=== PATIENT | female | born 1955 ===

== ENCOUNTER 2020-11-23 16:28 | Inpatient (IN) | payer MEDICARE ==
[~2020-11-23] VITALS: Ht 157.5 cm; Wt 68.0 kg
[2020-11-23] MEDS ORDERED: CLON0.1T PO (16:42)
--- NOTE | 2020-11-23 16:50 | NUR ---
Dr Davis at the bedside for MSE.
[2020-11-23] MEDS ORDERED: ACETAMINOPHEN ES 500 MG TABLET PO ONE (17:00)
[2020-11-23] MEDS ORDERED: CLONIDINE HCL 0.1 MG TABLET PO ONE (17:00)
[2020-11-23] MEDS ORDERED: CLONIDINE HCL 0.1 MG TABLET ONE (17:06)
--- NOTE | 2020-11-23 17:24 | NUR ---
DR Blas spoke to admitting Jayy Yao, for medical follow up in [facility]. Dr blas medically cleared the pt.
[2020-11-23 17:48] LABS: THYROID STIMULATING HORMONE 2.792 mIU/mL (0.358-3.740)
[2020-11-23] MEDS ORDERED: ACETAMINOPHEN ES 500 MG TABLET ONE (17:52)
--- NOTE | 2020-11-23 17:59 | NUR ---
Dinner tray provided, pt ate w/ good appetite. Continue monitoring for BP.
--- NOTE | 2020-11-23 19:30 | NUR ---
GPS ADMISSION NOTE: Patient is a 65 year old female, brought in by ambulance, from [facility] on a 5150 for DTS. Per the hold, the family called the police because the patient stated that she " Took a lot " of Advil and did not want to live anymore. Upon face to face evaluation, the patient is alert and oriented x4. Calm and cooperative but teary eyed. Patient admitted to taking the pills because she was fighting with her daughter over money. The patient denied actually wanting to , because she is close with her sister and granddaughter. This copywriter oriented the patient to the environment, gave patient a Rights Handbook and the Advisement. V.S are stable and the plan of care was discussed. Patient was able to contract for safety with the copywriter. Frequent rounding being done and patient monitored SI and for safety . A PRN medication was given per the patients request for sleep.This copywriter tried to call and notify the patients son about her admission, but the number that was provided is out of service. Orders received from the [facility] KNITTING TESTER Sophy and the Psychiatrist, Dr. Alvarado. No emotional distress noted at this time.
[2020-11-23 20:00] VITALS: BP 136/69
[2020-11-23] MEDS ORDERED: LORAZEPAM 1 MG TABLET PO PRN (21:00)
[2020-11-23] MEDS ORDERED: TEMAZEPAM 7.5 MG CAPSULE PO PRN (21:00)
[2020-11-23] MEDS ORDERED: MAGNESIUM HYDROXIDE 30 ML LIQUID UDC PO PRN (21:00)
[2020-11-23] MEDS ORDERED: MAG HYDROX/AL HYDROX/SIMETH 30 ML LIQUID UDC PO PRN (21:00)
[2020-11-23] MEDS: BLOOD SUGAR DIAGNOSTIC 1 EACH STRIP VI SCH (21:00)
--- NOTE | 2020-11-24 05:49 | NUR ---
Patient slept 8.30 hours last night. Up early this am for a shower. The patient denies SI at this time. Safety stratiges remain in place.
[2020-11-24] MEDS: BLOOD SUGAR DIAGNOSTIC 1 EACH STRIP VI SCH (06:13)
[2020-11-24 07:06] LABS: BASOPHILS % (AUTO) 0.7 % (0.0-2.0); EOSINOPHILS # (AUTO) 0.2 K/uL (0.0-0.7); EOSINOPHILS % (AUTO) 3.8 % (0.0-7.0); HEMATOCRIT 33.2 % (31.2-41.9); HEMOGLOBIN 11.6 g/dL (10.9-14.3); LYMPHOCYTES # (AUTO) 1.1 K/uL (20.0-40.0); LYMPHOCYTES % (AUTO) 25.4 % (20.5-51.5); MEAN CORPUSCULAR HEMOGLOBIN 30.4 uug (24.7-32.8); MEAN CORPUSCULAR HGB CONC 35 g/dL (32.3-35.6); MEAN CORPUSCULAR VOLUME 86.6 fL (75.5-95.3); MONOCYTES # (AUTO) 0.2 K/uL (2.0-10.0); NEUTROPHILS # (AUTO) 2.9 K/uL (1.8-8.9); NEUTROPHILS % (AUTO) 65.1 % (38.5-71.5); PLATELET COUNT (AUTO) 194 K/uL (179-408); RED BLOOD CELL COUNT(AUTO) 3.83 MIL/uL (3.63-4.92); WHITE BLOOD COUNT (AUTO) 4.5 K/uL (3.8-11.8)
[2020-11-24 07:19] LABS: BILIRUBIN,TOTAL 0.4 mg/dL (0.2-1.0); CREATININE 1.3 mg/dL (0.6-1.3); POTASSIUM 3.7 mmol/L (3.5-5.1)
[2020-11-24 07:30] VITALS: BP 198/83
[2020-11-24] MEDS: CLONIDINE HCL 0.1 MG TABLET PO PRN ×2 (08:44→19:00)
[2020-11-24] MEDS ORDERED: CLONIDINE HCL 0.1 MG TABLET PO SCH (09:00)
--- NOTE | 2020-11-24 10:17 | NUR ---
TAIWO Initial Discharge Plan: Patient resides at home [address] [place] [address] ([phone]) with her daughter Riana (# unknown). Patient would like to go live with her niece Constance ([phone]) upon discharge. Patient's son, Ramiro ([phone]) is also involved in the patient's care. TAIWO will continue to work with the patient, family, and MD to ensure a safe and proper discharge plan.
--- NOTE | 2020-11-24 10:25 | NUR ---
SW Family Contact: SW called and left a voicemail to discuss treatment and discharge plan with patient's son, Ramiro ([phone]).
--- NOTE | 2020-11-24 10:26 | NUR ---
Firearms Report: Rural Route Carrier completed and submitted a [employer] firearms report for 5150 danger to self certifications. A copy of report has been placed in patient chart.
--- NOTE | 2020-11-24 11:25 | NUR ---
Brief Substance Abuse Intervention: Patient was provided with a brief substance abuse intervention for Advil Overdose and referred to [facility] [address], [place] [address] ([phone]); [place] [facility] [address], [address], [place] [address] ([phone]); [facility] ([phone]); [facility] ([phone]); [facility] ([phone]); and National Suicide Prevention Lifeline ([phone]).
[2020-11-24] MEDS: AMLODIPINE 10 MG TABLET PO SCH (11:59)
[2020-11-24] MEDS ORDERED: PNEUMOCOCCAL 23-VAL P-SAC VAC 0.5 ML VIAL IM ONE (12:00)
[2020-11-24 15:22] VITALS: BP 165/76
[2020-11-24] MEDS: ATORVASTATIN 40 MG TABLET PO SCH (20:01)
[2020-11-24 20:35] VITALS: BP 140/53
[2020-11-24] MEDS: ACETAMINOPHEN 325 MG TABLET PO PRN (21:10)
[2020-11-25 07:30] VITALS: BP 185/70
[2020-11-25] MEDS: CLONIDINE HCL 0.1 MG TABLET PO PRN ×2 (07:30→16:49)
[2020-11-25] MEDS: AMLODIPINE 10 MG TABLET PO SCH (07:31)
--- NOTE | 2020-11-25 11:07 | NUR ---
SW Family Contact: SW called and left a voicemail to discuss treatment and discharge plan with patient's son, Ramiro ([phone]).
[2020-11-25 15:07] VITALS: BP 164/63
[2020-11-25 20:16] VITALS: BP 132/55
[2020-11-25] MEDS: ATORVASTATIN 40 MG TABLET PO SCH (20:34)
[2020-11-25] MEDS: ACETAMINOPHEN 325 MG TABLET PO PRN (20:37)
--- NOTE | 2020-11-25 23:27 | NUR ---
RECEIVED PATIENT IN BED. ALERT, CALM AND PLEASANT UPON APPROACH. DENIES SI. VERBALLY CY FOR SAFETY. COMPLIANT WITH MEDICATIONS .VISUAL CHECKS MADE ON HER FOR SAFETY. WILL CONTINUE TO MONITOR.
--- NOTE | 2020-11-26 06:30 | NUR ---
SHE SLEPT FOR 6:00 HOURS.
[2020-11-26 07:30] VITALS: BP 153/72
[2020-11-26] MEDS: AMLODIPINE 10 MG TABLET PO SCH (08:19)
[2020-11-26 16:00] VITALS: BP 161/76
[2020-11-26] MEDS: CLONIDINE HCL 0.1 MG TABLET PO PRN (16:54)
[2020-11-26] MEDS: ATORVASTATIN 40 MG TABLET PO SCH (20:04)
[2020-11-26 20:06] VITALS: BP 152/65
--- NOTE | 2020-11-26 22:30 | NUR ---
Received patient in her room, calm, interacts with staff, med compliant, semi fair insight and semi fair. Patient will remain in a psych facility for further evaluation and treatment.
[2020-11-27 07:30] VITALS: BP 167/56
--- NOTE | 2020-11-27 08:32 | NUR ---
TAIWO Family Contact: TAIWO spoke with patient's niece, Constance ([phone]) who stated she will curing pickling packer the patient and take her to her home today at 7pm.
[2020-11-27] MEDS: AMLODIPINE 10 MG TABLET PO SCH (08:40)
--- NOTE | 2020-11-27 09:55 | NUR ---
Discharge Note: Patient will be discharged home [address] [place] [address] with her niece, Constance ([phone]). Constance will be picking up the patient today at 7PM. Patient is alert and oriented x4 and is aware and agreeable with discharge plans. Patient denies suicidal or homicidal ideation. Patient presents with euthymic mood and congruent affect. Patient will be following up with her Primary Physician Dr. Allegra Fontanez [address] [place] [address] ([phone]) and has an appointment scheduled on December 09, 2020 at 10:30AM, spoke with Katy who stated they will refer the patient for outpatient psychiatric services. Patient is provided with the following resources [facility] ([phone]), [facility] ([phone]), [facility] ([phone]), National Suicide Prevention Lifeline ([phone]). Addendum: 11/27/20 at 0958 by KRIS HODGE Patient was provided with a brief substance abuse intervention and referred to [facility] [address] [place] [address] ([phone]); [place] [facility] [address] [place] [address] ([phone]); [facility] [employer] ([phone]); [facility] ([phone]); [facility] ([phone]).
--- NOTE | 2020-11-27 16:36 | NUR ---
Gps/Felt Pad Cutter- Discharged planning in progress. Marko Constance to rock picker patient @ 1900, and to provide transportation to home. Patient was well informed of her discharged. Reviewed, medications/prescriptions, safety , diet, skin care, follow up with her Primary Medical Doctor Dr Allegra Fontanez in [place], [place]. ([phone])appointment was made on November.Patient denies S.I., no H.I. , looking forward to going home , able to contract for her safety. No new complaints noted. All valuables to be given back to patient upon discharge.
[2020-11-27 17:04] VITALS: BP 161/79
--- NOTE | 2020-11-27 19:14 | NUR ---
Gps/Cook Cashier Food Prep - Marko Johnsonl in to picker feeder patient, all belongings given, verbalized understanding of the discharged instructions, . Discharged in good spirit, no complaints noted discharged to home via private car.
== END 2020-11-27 19:18 | disposition home or self-care (01) | DRG 881 ==
LOC: ER 16:28 → GPS 18:46
PROVIDERS: ADMIT Psychiatry & Neurology Psychiatry; ATTEND Nurse Practitioner Acute Care
DX: F32.9 Major depressive disorder, single episode, unspecified (principal); N17.9 Acute kidney failure, unspecified; N18.9 Chronic kidney disease, unspecified; R45.851 Suicidal ideations; T39.1X2D Poisoning by 4-Aminophenol derivatives, intentional self-harm, subsequent encounter; E11.9 Type 2 diabetes mellitus without complications; E78.5 Hyperlipidemia, unspecified; Z91.19 Patient's noncompliance with other medical treatment and regimen; F29 Unspecified psychosis not due to a substance or known physiological condition; E66.9 Obesity, unspecified; Z68.27 Body mass index [BMI] 27.0-27.9, adult; F41.9 Anxiety disorder, unspecified; I12.9 Hypertensive chronic kidney disease with stage 1 through stage 4 chronic kidney disease, or unspecified chronic kidney disease
CPT/HCPCS: 36415; 84443; 85025; 90732; 93005; A9150